=== PATIENT | female | born 1975 | race Two or more races ===

== ENCOUNTER 2018-07-24 07:37 | Emergency (ER) | payer MEDICAID ==
[~2018-07-24] VITALS: Ht 165.1 cm; Wt 74.8 kg
--- NOTE | 2018-07-24 07:40 | NUR ---
AAOX3, BIB C/O SUDDEN ONSET EPIGASTRIC PAIN RADIATES TO HER BACK SINCE THIS AM, ALSO C/O NAUSEA BUT NO VOMITING. RR IS EVEN AND UNLABORED. SKIN IS WARM AND DRY. PLACED ON HOSPITAL GOWN AND PROVIDED WARM BLANKET FOR COMFORT. AWAITING MD FOR EVAL. RN TO MONITOR.
--- NOTE | 2018-07-24 07:57 | NUR ---
DR PARNELL AT BS FOR EVAL.
[2018-07-24] MEDS ORDERED: PANTOPRAZOLE 40 MG VIAL IV ONE (08:00)
[2018-07-24] MEDS ORDERED: IV NS 0.9% 1,000 ML BAG IV ONE ×2 (08:00→09:30)
[2018-07-24] MEDS ORDERED: ONDANSETRON HCL/PF 4 MG/2 ML VIAL IVP ONE (08:00)
[2018-07-24] MEDS ORDERED: MORPHINE SULFATE INJ 2 MG/ML DISP.SYRIN IV ONE (08:00)
[2018-07-24] MEDS ORDERED: MORPHINE SULFATE INJ 4 MG/ML DISP.SYRIN ONE (08:02)
[2018-07-24] MEDS ORDERED: PANTOPRAZOLE 40 MG VIAL ONE (08:02)
[2018-07-24] MEDS ORDERED: ONDANSETRON HCL/PF 4 MG/2 ML VIAL ONE (08:02)
[2018-07-24 08:11] LABS: BASOPHILS % (AUTO) 0.8 % (0.0-2.0); EOSINOPHILS % (AUTO) 1.8 % (0.0-6.0); HEMATOCRIT 40 % (33-45); HEMOGLOBIN 13.8 g/dL (11.5-14.8); LYMPHOCYTES # (AUTO) 2.9 /CMM (0.8-4.8); LYMPHOCYTES % (AUTO) 44.7 % (20.0-44.0); MEAN CORPUSCULAR HGB CONC 34 g/dl (31.0-36.0); MEAN CORPUSCULAR VOLUME 94 fL (82-100); MONOCYTES # (AUTO) 0.5 /CMM (0.1-1.30); MONOCYTES % (AUTO) 8.3 % (2.0-12.0); NEUTROPHILS # (AUTO) 2.9 /CMM (1.8-8.9); NEUTROPHILS % (AUTO) 44.4 % (43.0-81.0); PLATELET COUNT (AUTO) 216 /CMM (150-450); RED BLOOD CELL COUNT(AUTO) 4.28 MIL/uL (4.0-5.2); WHITE BLOOD COUNT (AUTO) 6.6 K/uL (4.3-11.0)
[2018-07-24 08:19] LABS: CALCIUM, SERUM 9.4 mg/dL (8.5-10.1); CREATININE 0.9 mg/dL (0.6-1.3)
[2018-07-24 08:25] LABS: ALBUMIN 4.3 g/dL (3.4-5.0); BILIRUBIN,DIRECT 0.1 mg/dL (0.0-0.2); BILIRUBIN,TOTAL 0.2 mg/dL (0.2-1.0)
[2018-07-24 08:41] LABS: APPEARANCE,URINE Slightly Cloudy (CLEAR); BILIRUBIN,URINE Negative (NEGATIVE); BLOOD, URINE Negative Ery/uL (NEGATIVE); COLOR,URINE Yellow (YELLOW); KETONES,URINE Negative (NEGATIVE); LEUKOCYTE ESTERASE ,URINE Negative (NEGATIVE); NITRITE, URINE Negative (NEGATIVE); PH,URINE 5.5 (5.0-8.0); PROTEIN,URINE Trace mg/dl (NEGATIVE); UGLUCOSE Negative (NEGATIVE); UROBILINOGEN,URINE 0.2 EU/dL (0.2)
--- NOTE | 2018-07-24 09:15 | NUR ---
PATIENT TRANSPORTED FOR CT VIA WHEELCHAIR. PATIENT REMAINS IN STABLE CONDITION AT THIS TIME.
--- NOTE | 2018-07-24 09:23 | NUR ---
PATIENT CAME BACK FROM CT, APPEARS STABLE AT THIS TIME.
[2018-07-24] MEDS ORDERED: POTASSIUM CHLORIDE 20 MEQ TAB.PRT.SR PO ONE ×2 (09:25→09:30)
[2018-07-24 09:36] LABS: BACTERIA,URINE Few /HPF (None Seen); RBC,URINE 0-2 /HPF (0-2); SQUAMOUS EPITHELIAL CELL,UR Moderate /HPF (None Seen); WBC,URINE 0-2 /HPF (0-3)
--- NOTE | 2018-07-24 10:23 | NUR ---
IV removed. Catheter intact and site benign. Pressure and 4x4 applied to site. No bleeding noted.Patient discharged to home in stable condition. Written and verbal after care instructions given. Patient verbalizes understanding of instruction.
[2018-07-24 10:25] VITALS: BP 111/69
== END 2018-07-24 10:26 | disposition home or self-care (01) ==
LOC: ER 07:39
DX: K59.00 Constipation, unspecified (principal); R10.13 Epigastric pain
CPT/HCPCS: 36415; 71045; 74176; 80048; 80076; 81001; 83690; 84703; 85025; 93005; 96374; 96375; 99284; C9113; J2270; J2405; J7030 ×2; 81000-TC

== ENCOUNTER 2020-05-22 00:24 | Emergency (ER) | payer MEDICAID ==
[~2020-05-22] VITALS: Ht 162.6 cm; Wt 69.9 kg
--- NOTE | 2020-05-22 00:40 | NUR ---
BIB DAUGHTER FOR C/O ABD PAIN MOSTLY ON RUQ AND N/V X 3 HRS. PT WAS ASSISTED TO BED 9. PLACED ON A MONITOR. VSS. WILL CONT TO MONITOR ,
[2020-05-22] MEDS ORDERED: ONDANSETRON HCL/PF 4 MG/2 ML VIAL ONE (00:54)
[2020-05-22] MEDS ORDERED: MORPHINE SULFATE INJ 4 MG/ML DISP.SYRIN ONE (00:55)
[2020-05-22 00:57] LABS: BASOPHILS # (AUTO) 0.1 /CMM (0.0-0.2); BASOPHILS % (AUTO) 0.6 % (0.0-2.0); EOSINOPHILS % (AUTO) 0.6 % (0.0-6.0); HEMATOCRIT 40 % (33-45); HEMOGLOBIN 13.4 g/dL (11.5-14.8); LYMPHOCYTES # (AUTO) 2.6 /CMM (0.8-4.8); LYMPHOCYTES % (AUTO) 25.3 % (20.0-44.0); MEAN CORPUSCULAR HGB CONC 33 g/dl (31.0-36.0); MEAN CORPUSCULAR VOLUME 94 fL (82-100); MONOCYTES # (AUTO) 0.5 /CMM (0.1-1.30); MONOCYTES % (AUTO) 5.2 % (2.0-12.0); NEUTROPHILS # (AUTO) 7.1 /CMM (1.8-8.9); NEUTROPHILS % (AUTO) 68.3 % (43.0-81.0); PLATELET COUNT (AUTO) 225 /CMM (150-450); RED BLOOD CELL COUNT(AUTO) 4.26 MIL/uL (4.0-5.2); WHITE BLOOD COUNT (AUTO) 10.4 K/uL (4.3-11.0)
[2020-05-22] MEDS ORDERED: MORPHINE SULFATE INJ 2 MG/ML DISP.SYRIN IV ONE (01:00)
[2020-05-22] MEDS ORDERED: ONDANSETRON HCL/PF 4 MG/2 ML VIAL IVP ONE (01:00)
[2020-05-22] MEDS ORDERED: IV NS 0.9% 1,000 ML BAG IV ONE (01:00)
[2020-05-22 02:04] LABS: CALCIUM, SERUM 9.2 mg/dL (8.5-10.1); CREATININE 0.9 mg/dL (0.6-1.3); POTASSIUM 3.4 mmol/L (3.5-5.1)
[2020-05-22 02:10] LABS: ALBUMIN 4.1 g/dL (3.4-5.0); BILIRUBIN,DIRECT 0.1 mg/dL (0.0-0.2); BILIRUBIN,TOTAL 0.2 mg/dL (0.2-1.0); TOTAL PROTEIN, SERUM 7.5 g/dL (6.4-8.2)
[2020-05-22] MEDS ORDERED: ONDA4TAB11 PO (02:22)
[2020-05-22] MEDS ORDERED: KETO10TA2 PO (02:22)
[2020-05-22] MEDS ORDERED: OXYC-128 PO (02:22)
--- NOTE | 2020-05-22 02:45 | NUR ---
IV removed. Catheter intact and site benign. Pressure and 4x4 applied to site. No bleeding noted.Patient discharged to home in stable condition. RX AND Written and verbal after care instructions given. Patient verbalizes understanding of instruction.
[2020-05-22 03:18] VITALS: BP 105/66
== END 2020-05-22 02:45 | disposition home or self-care (01) ==
LOC: ER 00:26
DX: K80.20 Calculus of gallbladder without cholecystitis without obstruction (principal); R42 Dizziness and giddiness; R11.10 Vomiting, unspecified
CPT/HCPCS: 36415; 71045; 76705; 80048; 80076; 83690; 85025; 93005; 96361; 96374; 96375; 99285; J2270; J2405; J7030

== ENCOUNTER 2020-08-13 03:46 | Emergency (ER) | payer MEDICAID ==
[~2020-08-13] VITALS: Ht 160 cm; Wt 62.6 kg
[~2020-08-13 03:46] MED LIST: KETO10TA2 PO; ONDA4TAB11 PO; OXYC-128 PO
[2020-08-13] MEDS ORDERED: ONDANSETRON HCL/PF 4 MG/2 ML VIAL ONE (04:30)
[2020-08-13] MEDS ORDERED: IV NS 0.9% 1,000 ML BAG IV ONE (04:30)
[2020-08-13] MEDS ORDERED: ONDANSETRON HCL/PF 4 MG/2 ML VIAL IVP ONE (04:30)
[2020-08-13] MEDS ORDERED: MORPHINE SULFATE INJ 2 MG/ML DISP.SYRIN IV ONE (04:30)
--- NOTE | 2020-08-13 04:30 | NUR ---
presented to the er for c/o lower abd pain x 1 day. denied hematuria, dysuria or n/v. vss
[2020-08-13] MEDS ORDERED: MORPHINE SULFATE INJ 4 MG/ML DISP.SYRIN ONE (04:31)
[2020-08-13 04:43] LABS: BASOPHILS % (AUTO) 0.5 % (0.0-2.0); EOSINOPHILS % (AUTO) 0.6 % (0.0-6.0); HEMATOCRIT 39 % (33-45); LYMPHOCYTES # (AUTO) 1.6 /CMM (0.8-4.8); LYMPHOCYTES % (AUTO) 19.1 % (20.0-44.0); MEAN CORPUSCULAR HGB CONC 34 g/dl (31.0-36.0); MEAN CORPUSCULAR VOLUME 95 fL (82-100); MONOCYTES # (AUTO) 0.5 /CMM (0.1-1.30); MONOCYTES % (AUTO) 5.4 % (2.0-12.0); NEUTROPHILS # (AUTO) 6.3 /CMM (1.8-8.9); NEUTROPHILS % (AUTO) 74.4 % (43.0-81.0); PLATELET COUNT (AUTO) 199 /CMM (150-450); RED BLOOD CELL COUNT(AUTO) 4.08 MIL/uL (4.0-5.2); WHITE BLOOD COUNT (AUTO) 8.5 K/uL (4.3-11.0)
[2020-08-13 04:44] LABS: BILIRUBIN,URINE NEGATIVE (NEGATIVE); COLOR,URINE YELLOW (YELLOW); LEUKOCYTE ESTERASE ,URINE NEGATIVE (NEGATIVE); NITRITE, URINE NEGATIVE (NEGATIVE); PROTEIN,URINE NEGATIVE (NEGATIVE); UGLUCOSE NEGATIVE (NEGATIVE); UROBILINOGEN,URINE 0.2 EU/dL (0.2)
[2020-08-13 04:58] LABS: BILIRUBIN,DIRECT 0.1 mg/dL (0.0-0.2); BILIRUBIN,TOTAL 0.2 mg/dL (0.2-1.0); CALCIUM, SERUM 9.3 mg/dL (8.5-10.1); CREATININE 0.8 mg/dL (0.6-1.3); TOTAL PROTEIN, SERUM 7.6 g/dL (6.4-8.2)
[2020-08-13] MEDS ORDERED: HYDR-3972 PO (05:17)
[2020-08-13] MEDS ORDERED: PANT40TA2 PO (05:17)
--- NOTE | 2020-08-13 05:50 | NUR ---
pt is medically stbale for d/c. IV removed. Catheter intact and site benign. Pressure and 4x4 applied to site. No bleeding noted.Patient discharged to home in stable condition. Written and verbal after care instructions given. Patient verbalizes understanding of instruction.
[2020-08-13 05:51] VITALS: BP 117/72
== END 2020-08-13 05:51 | disposition home or self-care (01) ==
LOC: ER 03:48
DX: K80.70 Calculus of gallbladder and bile duct without cholecystitis without obstruction (principal); Z98.890 Other specified postprocedural states; Z87.891 Personal history of nicotine dependence; Z79.899 Other long term (current) drug therapy
CPT/HCPCS: 36415; 80048; 80076; 81003; 83690; 84703; 85025; 85730; 96361; 96374; 96375; 99284; J2270; J2405; J7030